=== PATIENT | female | born 1995 | race Caucasian/White ===

== ENCOUNTER 2017-02-24 01:17 | Emergency (ER) | payer SELFPAY ==
[~2017-02-24] VITALS: Ht 175.3 cm; Wt 104.3 kg
[2017-02-24 01:23] VITALS: BP 140/75
--- NOTE | 2017-02-24 01:31 | NUR ---
Patient ambulated to bed 04.
--- NOTE | 2017-02-24 01:37 | NUR ---
21 Y/O F W/C/O PELVIC AND VAGINAL PAIN X 3 DAYS WHICH RADIATES TO LOWER BACK. PT DENIES ANY FEVER, CHILLS, OR DISCHARGE. NO S/S OF DISTRESS NOTED AT THE MOMENT. ER MD MADE AWARE.
--- NOTE | 2017-02-24 01:46 | NUR ---
NELL WILKINS AT BEDSIDE EVALUATING PT.
--- NOTE | 2017-02-24 01:55 | NUR ---
Pelvic exam performed by DR LONDON with ME at bedside for entire examination. Patient tolerated procedure WELL. Patient assisted to position of comfort after examination.
[2017-02-24 02:10] VITALS: BP 140/75
--- NOTE | 2017-02-24 02:10 | NUR ---
DPatient discharged with v/s stable. Written and verbal after care instructions given and explained. Patient alert, oriented and verbalized understanding of instructions. Ambulatory with steady gait. All questions addressed prior to discharge. ID band removed. Patient advised to follow up with PMD OR RETURN TO ER IF CONDITION WORSENS. Rx of IBUPROFEN, AND HYDROCORTISONE 2.5% given. Patient educated on indication of medication including possible reaction and side effects. Opportunity to ask questions provided and answered.
== END 2017-02-24 02:10 | disposition home or self-care (01) ==
LOC: MED 01:17
DX: L40.9 Psoriasis, unspecified (principal); E11.9 Type 2 diabetes mellitus without complications
CPT/HCPCS: 81002; 81025; 99283

== ENCOUNTER 2020-11-16 18:00 | Emergency (ER) | payer OTHER ==
[~2020-11-16] VITALS: Ht 175.3 cm; Wt 163.3 kg
[2020-11-16 18:08] VITALS: BP 153/86
[2020-11-16] MEDS ORDERED: KETOROLAC 60 MG/2 ML VIAL IM ONE (18:45)
[2020-11-16] MEDS ORDERED: OMEP40EC24 PO (19:06)
[2020-11-16] MEDS ORDERED: IBUP-2213 PO (19:06)
[2020-11-16] MEDS ORDERED: ACET-8386 PO (19:06)
[2020-11-16 19:23] VITALS: BP 153/86
== END 2020-11-16 19:23 | disposition home or self-care (01) ==
LOC: MED 18:00
DX: M25.512 Pain in left shoulder (principal); M79.671 Pain in right foot; M25.522 Pain in left elbow; V98.8XXA Other specified transport accidents, initial encounter; Y93.89 Activity, other specified; Y92.89 Other specified places as the place of occurrence of the external cause; Y99.8 Other external cause status
CPT/HCPCS: 96372; 99283; J1885